=== PATIENT | male | born 1950 | race Caucasian/White ===

== ENCOUNTER 2017-08-26 08:03 | Emergency (ER) | payer MEDICARE, OTHER ==
--- NOTE | 2017-08-26 09:09 | RADIOLOGY REPORT (SQ) ---
EXAM DESCRIPTION: FOOT LEFT COMPLETE COMPLETED DATE/TIME: 08/26/2017 8:44 am REASON FOR STUDY: left foot pop/pain COMPARISON: None. NUMBER OF VIEWS: Three views. TECHNIQUE: AP, lateral and oblique radiographic images acquired of the left foot. LIMITATIONS: None. FINDINGS: MINERALIZATION: Normal. BONES: No acute fracture or dislocation. No worrisome bone lesions. JOINTS: Mild bony spurring at the tarsometatarsal joints without high-grade joint space narrowing. SOFT TISSUES: No soft tissue swelling. No foreign body. OTHER: No other significant finding. IMPRESSION: No acute fracture or malalignment. TECHNICAL DOCUMENTATION: JOB ID: [id number] [employer]- All Rights Reserved Reading location - IP/workstation name: [email or web address]
--- NOTE | 2017-08-26 09:13 | RADIOLOGY REPORT (SQ) ---
EXAM DESCRIPTION: ANKLE LEFT COMPLETE COMPLETED DATE/TIME: 08/26/2017 8:44 am REASON FOR STUDY: left foot pop/pain COMPARISON: None. NUMBER OF VIEWS: Three views. TECHNIQUE: AP, lateral, and oblique radiographic images acquired of the left ankle. LIMITATIONS: None. FINDINGS: MINERALIZATION: Normal. BONES: No acute fracture or dislocation. No worrisome bone lesions. JOINTS: Tibiotalar joint effusion. No malalignment of the ankle mortise SOFT TISSUES: Focal soft tissue swelling over the foot at the tarsometatarsal region. Question injur y to the distal tibialis anterior tendon. OTHER: No other significant finding. IMPRESSION: Tiny avulsion fracture off the medial malleolar tip marked with an arrow on the mortise view. Associated medial soft tissue swelling and tibiotalar joint effusion. There is swelling over the dorsal midfoot, tibialis anterior distal tendon attachment avulsion could not be excluded TECHNICAL DOCUMENTATION: JOB ID: [id number]- All Rights Reserved Reading location - IP/workstation name: [email or web address]
--- NOTE | 2017-08-26 11:17 | ER Document Report ---
ED Extremity Problem, Lower - General Chief Complaint: Foot Pain Stated Complaint: LEFT FOOT PAIN Time Seen by Provider: 08/26/17 08:11 Mode of Arrival: Ambulatory Information source: Patient Notes: Patient is a 66-year-old male who presents to the ER today for left ankle pain after trying to get up from a chair yesterday, feeling and hearing a painful pop in the lateral portion of his left ankle and falling over. Patient denies any other injury. He denies any numbness or tingling. She does have a history of blood clots in 2014 is not currently on any blood thinners. He does admit to swelling of the left ankle and foot. He denies any calf pain. TRAVEL OUTSIDE OF THE [place] IN LAST 30 DAYS: No - Related Data Allergies/Adverse Reactions: No Known Allergies Allergy (Unverified 08/26/17 08:07) Home Medications: neurotin. unsure of bp and statin medications Past Medical History - General Information source: Patient - Social History Smoking Status: Current Every Day Smoker Frequency of alcohol use: Heavy Drug Abuse: None Family History: Reviewed & Not Pertinent Patient has suicidal ideation: No Patient has homicidal ideation: No - Past Medical History Cardiac Medical History: Reports: Hx Hypercholesterolemia, Hx Hypertension Renal/ Medical History: Denies: Hx Peritoneal Dialysis Review of Systems - Review of Systems Constitutional: No symptoms reported EENT: No symptoms reported Cardiovascular: No symptoms reported Respiratory: No symptoms reported Gastrointestinal: No symptoms reported Genitourinary: No symptoms reported Male Genitourinary: No symptoms reported Musculoskeletal: See HPI Skin: See HPI Hematologic/Lymphatic: No symptoms reported Neurological/Psychological: No symptoms reported Physical Exam - Vital signs Vitals: Temp Pulse Resp BP Pulse Ox 97.6 F 48 L 18 148/76 H 97 08/26/17 08:07 08/26/17 08:07 08/26/17 08:07 08/26/17 08:07 08/26/17 08:07 - Notes Notes: PHYSICAL EXAMINATION: GENERAL: Well-appearing and in no acute distress. HEAD: Atraumatic, normocephalic. EYES: Pupils equal round and reactive to light, extraocular movements intact, sclera anicteric, conjunctiva are normal. NECK: Normal range of motion, supple without lymphadenopathy LUNGS: CTAB and equal. No wheezes rales or rhonchi. HEART: Regular rate and rhythm without murmurs EXTREMITIES: tender to left lateral malleolus, otherwise Normal range of motion but with pain on rotation, flexion and extension of the ankle, good distal pulses and capillary refill, no pitting edema. No cyanosis. NEUROLOGICAL: Cranial nerves grossly intact. Normal sensory/motor exams. PSYCH: Normal mood, normal affect. SKIN: Warm, Dry, normal turgor, edema to left lateral and medial malleolus Course - Re-evaluation Re-evalutation: 08/26/17 11:16 Doppler of the left lower extremity negative for any blood clots, avulsion fracture of the medial malleolus seen on ankle x-ray, patient placed in a short leg posterior splint with a stirrup splint and given orthopedic information to follow-up, given crutches. Patient declines any pain medication. - Vital Signs Vital signs: Temp Pulse Resp BP Pulse Ox 97.8 F 62 14 169/78 H 98 08/26/17 11:27 08/26/17 11:27 08/26/17 11:27 08/26/17 11:27 08/26/17 11:27 Discharge - Discharge Clinical Impression: Avulsion fracture of ankle Qualifiers: Encounter type: initial encounter Fracture type: closed Laterality: left Qualified Code(s): S82.892A - Other fracture of left lower leg, initial encounter for closed fracture Condition: Stable Disposition: HOME, SELF-CARE Additional Instructions: Return immediately for any new or worsening symptoms. Follow up with primary care provider, call tomorrow to make followup appointment. Referrals: JUSTICE FINCH MD [Primary Care Provider] - Follow up as needed BRIAN GONZÁLES MD [ACTIVE STAFF] - Follow up as needed
[2017-08-26 11:27] VITALS: BP 169/78
--- NOTE | 2017-08-26 12:12 | XCELERA REPORT ---
[address] [address] Lower Extremity Venous Evaluation Name: EVERETTE SWEET Age: 66 yrs Gender: Male : 1950 Patient Status: Emergency Patient Location: ER Study Date: 08/26/2017 10:12 AM Procedure: Color flow and duplex imaging of the veins of the left lower extremity as well as the right Common Femoral vein. Reason For Study: pain left ankle, hx blood clot Ordering Physician: RAISA FLORES PA-C Performed By: Raheel Allison Right Sided Venous Evaluation The right common femoral vein is fully compressible. Spontaneous and phasic flow is present in the right common femoral vein. Left Sided Venous Evaluation Normal vessel filling wall to wall, compression and augmentation as well as Colour flow down to the infrageniculate veins. Interpretation Summary No duplex evidence of DVT or obstruction in the left lower extremity nor in the right Common Femoral vein. : RAISA FLORES PA-C > José Luis Waldrop
== END 2017-08-26 11:31 | disposition home or self-care (01) ==
LOC: ER 08:03
PROC: 2W3RX1Z Immobilization of Left Lower Leg using Splint (ICD-10-PCS; principal; 2017-08-26)
DX: S82.892A Other fracture of left lower leg, initial encounter for closed fracture (principal); M79.672 Pain in left foot; M25.572 Pain in left ankle and joints of left foot; M79.89 Other specified soft tissue disorders; W19.XXXA Unspecified fall, initial encounter; F17.200 Nicotine dependence, unspecified, uncomplicated
CPT/HCPCS: 93971; 99284